=== PATIENT | female | born 1960 | race Two or more races ===

== ENCOUNTER 2017-03-08 21:16 | Emergency (ER) | payer BC, MEDICAID ==
[~2017-03-08] VITALS: Ht 154.9 cm; Wt 61.3 kg
[2017-03-08 21:26] VITALS: BP 154/97
--- NOTE | 2017-03-08 21:39 | NUR ---
[facility] DRAWING PT LABS
[2017-03-08 21:47] LABS: HEMOGLOBIN 15.4 g/dL (12.0-16.0)
[2017-03-08 21:52] LABS: HEMATOCRIT 46.6 % (36-48); MEAN CORPUSCULAR HEMOGLOBIN 32 pg (27-31); MEAN CORPUSCULAR HGB CONC 33 g/dL (33-37); MEAN CORPUSCULAR VOLUME 96 fL (80-94); PLATELET COUNT (AUTO) 289 K/uL (140-450); RED BLOOD CELL COUNT(AUTO) 4.86 MIL/uL (4.20-5.40); RED CELL DISTRIBUTION WIDTH 12.8 % (11.6-13.7); WHITE BLOOD COUNT (AUTO) 15.1 K/uL (4.8-10.8)
[2017-03-08 21:58] LABS: APPEARANCE,URINE CLEAR (CLEAR); BILIRUBIN,URINE NEGATIVE (NEGATIVE); BLOOD, URINE TRACE-I (NEGATIVE); COLOR,URINE YELLOW (YELLOW); LEUKOCYTE ESTERASE ,URINE TRACE (NEGATIVE); NITRITE, URINE NEGATIVE (NEGATIVE); PH,URINE 5.5 (5.0-9.0); UGLUCOSE NEGATIVE (NEGATIVE)
[2017-03-08 22:03] LABS: RBC,URINE 0-3 /HPF (0-5)
[2017-03-08 22:07] LABS: ANION GAP 14.2 (8-16); CARBON DIOXIDE 26.5 mmol/L (21-32); CREATININE 0.9 mg/dL (0.6-1.3); POTASSIUM 3.7 mmol/L (3.5-5.1)
[2017-03-08 22:10] LABS: BASOPHILS % (MANUAL) 0 % (0-2); EOSINOPHILS % (MANUAL) 2 % (0-4); LYMPHOCYTES % (MANUAL) 17 % (20-46); MONOCYTES % (MANUAL) 5 % (5-12)
[2017-03-08 22:13] LABS: ALBUMIN 4.1 g/dL (3.4-5.0); TOTAL BILIRUBIN 0.3 mg/dL (0.0-1.0)
--- NOTE | 2017-03-08 23:10 | NUR ---
PT TAKEN TO BED 4
--- NOTE | 2017-03-08 23:21 | NUR ---
Dr. Majano evaluating patient at bedside.
[2017-03-08] MEDS ORDERED: ONDANSETRON 4 MG ODT PO ONE (23:25)
[2017-03-08] MEDS ORDERED: KETOROLAC 60 MG/2 ML VIAL IM ONE (23:25)
--- NOTE | 2017-03-09 00:33 | NUR ---
Patient discharged with v/s stable. Written and verbal after care instructions given and explained. Patient alert, oriented and verbalized understanding of instructions. Ambulatory with to home. All questions addressed prior to discharge. ID band removed. Patient advised to follow up with PMD. Rx of given. Patient educated on indication of medication including possible reaction and side effects. Opportunity to ask questions provided and answered.
[2017-03-09 00:35] VITALS: BP 134/69
== END 2017-03-09 00:33 | disposition home or self-care (01) ==
LOC: MED 21:16
DX: N39.0 Urinary tract infection, site not specified (principal)
CPT/HCPCS: 36415; 80053; 81001; 83690; 85025; 96372; 99284; J1885; S0119